=== PATIENT | male | born 1975 ===

== ENCOUNTER 2025-04-28 15:34 | Inpatient (IN) | payer OTHER ==
[~2025-04-28] VITALS: Ht 185.4 cm; Wt 77.4 kg
[2025-04-28] MEDS ORDERED: ONDANSETRON HCL 4 MG/2 ML VIAL IVP PRN (16:15)
[2025-04-28] MEDS ORDERED: ZOLPIDEM TARTRATE 5 MG TABLET PO PRN (16:15)
[2025-04-28] MEDS ORDERED: ACETAMINOPHEN 325 MG TABLET PO PRN (16:15)
[2025-04-28] MEDS ORDERED: OxyCODONE HCL/ACETAMINOPHEN 5-325 MG TABLET PO PRN ×2 (16:15)
[2025-04-28] MEDS ORDERED: MAGNESIUM HYDROXIDE SUSPENSION 30 ML UDCUP PO PRN (16:15)
[2025-04-28] MEDS: SODIUM CHLORIDE 0.9% 1,000 ML IV ONE (16:27)
[2025-04-28 16:36] LABS: BASOPHILS % (AUTO) 1.1 % (0.0-2.0); EOSINOPHILS % (AUTO) 0.8 % (1.0-6.0); HEMATOCRIT 32.5 % (41-53); HEMOGLOBIN 11.6 g/dL (13.5-17.5); LYMPHOCYTES # (AUTO) 1.3 K/uL (1.0-4.8); LYMPHOCYTES % (AUTO) 18.7 % (22.0-44.0); MEAN CORPUSCULAR HEMOGLOBIN 30.9 pg (26.0-34.0); MEAN CORPUSCULAR HGB CONC 35.6 G/dL (31.0-37.0); MEAN CORPUSCULAR VOLUME 87 fL (80-100); MONOCYTES # (AUTO) 0.5 K/uL (0.1-1.0); MONOCYTES % (AUTO) 7.2 % (2.0-9.0); NEUTROPHILS % (AUTO) 72.2 % (40.0-70.0); PLATELET COUNT (AUTO) 169 K/uL (150-450); RED BLOOD CELL COUNT(AUTO) 3.75 MIL/uL (4.50-5.90); RED CELL DISTRIBUTION WIDTH 13.5 % (11.5-14.5)
[2025-04-28 16:39] LABS: ANION GAP 5 mmol/L (8-16); CALCIUM, TOTAL 8.7 mg/dL (8.8-10.5); CARBON DIOXIDE 31 mmol/L (22-29); CHLORIDE 102 mmol/L (98-107); CREATININE 0.95 mg/dL (0.60-1.30); GLOMERULAR FILTR. RATE CALC > 60 mL/min (>60); GLUCOSE,RANDOM 96 mg/dL (70-110); POTASSIUM 4.7 mmol/L (3.5-5.1); SODIUM SERUM 138 mmol/L (136-145); UREA NITROGEN, BLOOD 8 mg/dL (7-18)
[2025-04-28] MEDS: CefTRIAXone 1 GM/DEXTROSE 50 ML IV SCH (16:44)
[2025-04-28] MEDS: KETOROLAC TROMETHAMINE 30 MG/ML VIAL IVP ONE (16:44)
[2025-04-28] MEDS: COLCHICINE 0.6 MG TABLET PO ONE (16:45)
[2025-04-28] MEDS: MethylPREDNISolone SOD SUCC 125 MG/2 ML VIAL IVP ONE (16:45)
[2025-04-28 16:49] LABS: LACTIC ACID 1.1 mmol/L (0.4-2.0)
[2025-04-28] MEDS: VANCOMYCIN 1GM/WATER(PEG/NADA) 200 ML IV ONE (17:37)
[2025-04-28 20:09] VITALS: BP 108/70; PULSE 89; RESP 20; TEMP 97.9; O2SAT 96
[2025-04-28] MEDS: DOCUSATE SODIUM 100 MG CAPSULE PO SCH (21:17)
[2025-04-28] MEDS: HEPARIN SODIUM,PORCINE 5,000 UNITS/ML VIAL SQ SCH (21:17)
[2025-04-29 04:27] VITALS: BP 120/79; PULSE 90; RESP 18; TEMP 97.3; O2SAT 99
[2025-04-29 07:20] LABS: ANION GAP 6 mmol/L (8-16); CALCIUM, TOTAL 9.1 mg/dL (8.8-10.5); CARBON DIOXIDE 28 mmol/L (22-29); CHLORIDE 106 mmol/L (98-107); CREATININE 0.84 mg/dL (0.60-1.30); GLOMERULAR FILTR. RATE CALC > 60 mL/min (>60); GLUCOSE,RANDOM 133 mg/dL (70-110); POTASSIUM 4.8 mmol/L (3.5-5.1); SODIUM SERUM 140 mmol/L (136-145); UREA NITROGEN, BLOOD 9 mg/dL (7-18)
[2025-04-29 08:01] VITALS: BP 114/71; PULSE 89; RESP 18; TEMP 97.7; O2SAT 100
[2025-04-29] MEDS: MULTIVITAMINS WITH MINERALS, THERAPEUTIC TABLET PO SCH (08:13)
[2025-04-29] MEDS: FAMOTIDINE 20 MG TABLET PO SCH (08:13)
[2025-04-29] MEDS: BUPRENORPHINE HCL/NALOXONE HCL 2-0.5 MG SUBLINGUAL TABLET SL SCH (08:13)
[2025-04-29] MEDS ORDERED: SODIUM CHLORIDE 0.9% 500 ML IV ONE (08:54)
[2025-04-29] MEDS: VANCOMYCIN HCL 1.25 GM in DEXTROSE 5%-WATER 250 ML IV SCH (09:08)
[2025-04-29] MEDS: BUPRENORPHINE HCL/NALOXONE HCL 2-0.5 MG SUBLINGUAL TABLET SL ONE (10:40)
[2025-04-29 10:48] LABS: APPEARANCE,URINE CLEAR (CLEAR); BILIRUBIN,URINE NEGATIVE (NEGATIVE); COLOR,URINE LIGHT YELLOW (YELLOW); GLUCOSE, URINE (UA) NEGATIVE (NEGATIVE); KETONES,URINE NEGATIVE (NEGATIVE); LEUKOCYTE ESTERASE ,URINE NEGATIVE (NEGATIVE); NITRATE,URINE NEGATIVE (NEGATIVE); OCCULT BLOOD,URINE NEGATIVE (NEGATIVE); PROTEIN,URINE NEGATIVE (NEGATIVE); SPECIFIC GRAVITIY, URINE 1.021 (1.003-1.030); UROBILINOGEN,URINE <=1.0 mg/dL (<=1.0)
[2025-04-29 10:54] LABS: ALCOHOL, URINE DRUG SCREEN NEGATIVE (NEGATIVE); AMPHET/METH SCREEN,URINE NEGATIVE (NEGATIVE); BARBITURATE SCREEN, URINE NEGATIVE (NEGATIVE); BENZODIAZEPINES SCREEN,URINE NEGATIVE (NEGATIVE); CANNABINOID SCREEN,URINE NEGATIVE (NEGATIVE); COCAINE SCREEN,URINE NEGATIVE (NEGATIVE); METHADONE SCREEN, URINE NEGATIVE (NEGATIVE); OPIATE SCREEN,URINE NEGATIVE (NEGATIVE); PHENCYCLIDINE SCREEN,URINE NEGATIVE (NEGATIVE)
[2025-04-29] MEDS: BuPROPion HCL 150 MG SR TABLET PO SCH (13:20)
[2025-04-29 19:20] VITALS: BP 107/71; PULSE 74; RESP 18; TEMP 97.7; O2SAT 97
[2025-04-30 04:53] VITALS: BP 110/77; PULSE 78; RESP 18; TEMP 98.2; O2SAT 98
[2025-04-30 07:06] LABS: ANION GAP 4 mmol/L (8-16); CALCIUM, TOTAL 8.8 mg/dL (8.8-10.5); CARBON DIOXIDE 32 mmol/L (22-29); CHLORIDE 106 mmol/L (98-107); CREATININE 0.94 mg/dL (0.60-1.30); GLOMERULAR FILTR. RATE CALC > 60 mL/min (>60); GLUCOSE,RANDOM 80 mg/dL (70-110); POTASSIUM 4.3 mmol/L (3.5-5.1); SODIUM SERUM 142 mmol/L (136-145); UREA NITROGEN, BLOOD 14 mg/dL (7-18)
[2025-04-30 08:15] VITALS: BP 109/77; PULSE 77; RESP 18; TEMP 97.9; O2SAT 100
[2025-04-30] MEDS: BUPRENORPHINE HCL/NALOXONE HCL 8-2 MG SUBLINGUAL TABLET SL SCH (08:29)
[2025-04-30] MEDS ORDERED: FAMO20 PO (10:08)
[2025-04-30] MEDS ORDERED: BUPR-433 PO (10:08)
[2025-04-30] MEDS ORDERED: BUPR1TAB46 SL (10:08)
[2025-04-30] MEDS ORDERED: MULT-248 PO (10:09)
[2025-04-30] MEDS ORDERED: ACET-2247 PO (10:10)
[2025-04-30] MEDS ORDERED: MAGN-169 PO (10:11)
[2025-04-30] MEDS: CLINDAMYCIN HCL 300 MG PO SCH (16:43)
== END 2025-04-30 20:02 | DRG 603 ==
LOC: EMS 15:34 → EDH 16:03 → 6S 19:56
PROVIDERS: ADMIT Internal Medicine; ATTEND Internal Medicine
DX: L03.032 Cellulitis of left toe (principal); D64.9 Anemia, unspecified; F17.210 Nicotine dependence, cigarettes, uncomplicated; F19.10 Other psychoactive substance abuse, uncomplicated; Z88.2 Allergy status to sulfonamides
CPT/HCPCS: 80048; 80202; 80307; 81003; 83605; 84443; 85025; 87040; 87389; 99285; J0696; J1644; J1885; J2919; J7040; J7060